=== PATIENT | male | born 1995 | race African-American/Black ===

== ENCOUNTER 2017-09-11 17:27 | Emergency (ER) | payer OTHER, SELFPAY ==
[2017-09-11] MEDS: ACETAMINOPHEN 325 MG TAB PO ×2 (20:30)
== END 2017-09-11 21:37 | disposition home or self-care (01) ==
LOC: M ED 17:27
DX: S13.4XXA Sprain of ligaments of cervical spine, initial encounter (principal); S09.90XA Unspecified injury of head, initial encounter; V43.62XA Car passenger injured in collision with other type car in traffic accident, initial encounter; Y92.410 Unspecified street and highway as the place of occurrence of the external cause; Y93.9 Activity, unspecified; Y99.9 Unspecified external cause status
CPT/HCPCS: 70450

== ENCOUNTER → 2018-09-03 | Outpatient (REF) | payer OTHER ==
[~2018-09-03] MED LIST: IBUP-1022 PO
== END ==
LOC: M SFHCLERA 14:39
PROVIDERS: ATTEND Nurse Practitioner Family
DX: J02.9 Acute pharyngitis, unspecified (principal)

== ENCOUNTER → 2018-11-02 | Outpatient (REF) | payer OTHER ==
[2018-11-02 21:47] LABS: CHLAMYDIA DNA AMPLIFICATION POSITIVE (NEGATIVE); GC DNA AMPLIFICATION NEGATIVE (NEGATIVE)
== END ==
LOC: M SFHCLERA 13:21
PROVIDERS: ATTEND Nurse Practitioner Family
DX: Z20.2 Contact with and (suspected) exposure to infections with a predominantly sexual mode of transmission (principal)
CPT/HCPCS: 81002; 87086; 87661; 96372; G0463; J0696

== ENCOUNTER 2018-11-06 00:54 | Emergency (ER) | payer OTHER ==
[2018-11-06 02:28] VITALS: BP 129/83
== END 2018-11-06 02:30 | disposition home or self-care (01) ==
LOC: M ED 00:54
DX: F43.22 Adjustment disorder with anxiety (principal)

== ENCOUNTER → 2018-11-20 | Outpatient (REF) | payer OTHER ==
[2018-11-20 21:41] LABS: CHLAMYDIA DNA AMPLIFICATION NEGATIVE (NEGATIVE); GC DNA AMPLIFICATION NEGATIVE (NEGATIVE)
== END ==
LOC: M SFHCLUC 09:12
PROVIDERS: ATTEND Physician Assistant
DX: Z11.3 Encounter for screening for infections with a predominantly sexual mode of transmission (principal)